=== PATIENT | female | born 1940 | race Caucasian/White ===

== ENCOUNTER → 2017-02-28 | Outpatient (CLI) | payer OTHER | LOC: BRMIMAGING 13:27 | DX: Z12.31 Encounter for screening mammogram for malignant neoplasm of breast (principal) | CPT/HCPCS: G0202 ==

== ENCOUNTER → 2018-03-07 | Outpatient (CLI) | payer OTHER | LOC: BRMIMAGING 14:20 | PROVIDERS: ATTEND Physician Assistant Medical | DX: Z12.31 Encounter for screening mammogram for malignant neoplasm of breast (principal) ==

== ENCOUNTER → 2019-03-26 | Outpatient (CLI) | payer OTHER | LOC: BRMIMAGING 12:12 ==